=== PATIENT | female | born 1960 | race Caucasian/White ===

== ENCOUNTER 2023-08-07 07:24 | Emergency (ER) | payer MEDICAID ==
[~2023-08-07] VITALS: Ht 157.5 cm; Wt 70.4 kg
[2023-08-07 08:04] VITALS: BP 148/80; PULSE 94; RESP 18; TEMP 98.7; O2SAT 95
[2023-08-07] MEDS ORDERED: TETANUS-DIPTH-ACEL PERTUSSIS 0.5ML SYR Tdap IM ONE (08:15)
[2023-08-07] MEDS ORDERED: IBUP-1455 PO (08:25)
[2023-08-07] MEDS ORDERED: BACDST PO ×2 (08:25)
[2023-08-07] MEDS ORDERED: CEPH500C PO (08:35)
[2023-08-07] MEDS ORDERED: DICL500C76 PO (09:12)
== END 2023-08-07 08:29 | disposition home or self-care (01) ==
LOC: ER 07:24
DX: S30.860A Insect bite (nonvenomous) of lower back and pelvis, initial encounter (principal); L08.9 Local infection of the skin and subcutaneous tissue, unspecified; W57.XXXA Bitten or stung by nonvenomous insect and other nonvenomous arthropods, initial encounter; Y93.89 Activity, other specified; Y92.89 Other specified places as the place of occurrence of the external cause; Y99.8 Other external cause status
CPT/HCPCS: 90471; 90715

== ENCOUNTER 2023-08-07 08:44 | Emergency (ER) | payer MEDICAID ==
[~2023-08-07] VITALS: Ht 157.5 cm; Wt 69.7 kg
[~2023-08-07 08:44] MED LIST: BACDST PO; CEPH500C PO; IBUP-1455 PO
[2023-08-07] MEDS ORDERED: DICL500C76 PO (09:12)
[2023-08-07 09:34] VITALS: BP 147/74; PULSE 84; RESP 16; O2SAT 98
== END 2023-08-07 09:22 | disposition home or self-care (01) ==
LOC: ER 08:44
DX: L01.03 Bullous impetigo (principal); Z88.2 Allergy status to sulfonamides; Z88.1 Allergy status to other antibiotic agents